=== PATIENT | female | born 1950 | race Caucasian/White ===

== ENCOUNTER 2016-05-20 18:05 | Emergency (ER) | payer OTHER ==
[~2016-05-20] VITALS: Ht 157.5 cm; Wt 59.9 kg
[2016-05-20 19:11] LABS: BASOPHIL % 0.6 % (0-2); PLATELET COUNT 297 x10^3mcL (130-400); RED CELL DISTRIBUTION WIDTH 14.5 % (11.5-14.5)
[2016-05-20 19:21] LABS: CALCIUM 9.2 mg/dL (8.5-10.1); CARBON DIOXIDE 28.7 mmol/L (21-32); CHLORIDE SERUM 103 mmol/L (98-107); CREATININE SERUM 0.6 mg/dL (0.6-1.0); GFR1 > 60 mL/min; GLUCOSE SERUM 99 mg/dL (74-106); SODIUM SERUM 142 mmol/L (136-145)
[2016-05-20 19:27] LABS: ALBUMIN 4.1 g/dL (3.4-5.0); ALKALINE PHOSPHATASE 108 U/L (46-116); ALT/SGPT 22 U/L (14-59); AST/SGOT 24 U/L (15-37); BILIRUBIN TOTAL 0.7 mg/dL (0.20-1.00); MAGNESIUM 2.2 mg/dL (1.8-2.4)
[2016-05-20 19:29] LABS: CHOLESTEROL 296 mg/dL (<200); HDL CHOLESTEROL 118 mg/dL (40-60); TOTAL PROTEIN, SERUM 8.3 g/dL (6.4-8.2)
[2016-05-20 19:53] LABS: microscopic required? YES; urine erythrocyte NEGATIVE (NEGATIVE)
[2016-05-20 20:05] LABS: AMPHETAMINE QUAL UR NONE DETECTED (NEG <=1000)
[2016-05-20 20:19] VITALS: BP 112/85
== END 2016-05-20 20:19 | disposition home or self-care (01) ==
LOC: ED 18:05
PROVIDERS: Emergency Medicine
DX: I10 Essential (primary) hypertension (principal); E78.00 Pure hypercholesterolemia, unspecified; R51 Headache; J45.909 Unspecified asthma, uncomplicated
CPT/HCPCS: 80307; 82962; 83880; Q0092

== ENCOUNTER 2016-06-12 05:49 | Inpatient (IN) | payer OTHER ==
[~2016-06-12] VITALS: Ht 157.5 cm; Wt 60.1 kg
[2016-06-12 06:49] LABS: BASOPHIL % 0.3 % (0-2); PLATELET COUNT 282 x10^3mcL (130-400); RED CELL DISTRIBUTION WIDTH 13.8 % (11.5-14.5)
[2016-06-12 06:52] LABS: CALCIUM 9.3 mg/dL (8.5-10.1); CARBON DIOXIDE 26.3 mmol/L (21-32); CHLORIDE SERUM 102 mmol/L (98-107); CREATININE SERUM 0.7 mg/dL (0.6-1.0); GFR1 > 60 mL/min; GLUCOSE SERUM 126 mg/dL (74-106); POTASSIUM SERUM 3.5 mmol/L (3.5-5.1); SODIUM SERUM 139 mmol/L (136-145)
[2016-06-12 06:57] LABS: ALBUMIN 4.1 g/dL (3.4-5.0); ALKALINE PHOSPHATASE 110 U/L (46-116); ALT/SGPT 22 U/L (14-59); AST/SGOT 23 U/L (15-37); BILIRUBIN TOTAL 0.58 mg/dL (0.20-1.00); TOTAL PROTEIN, SERUM 8.1 g/dL (6.4-8.2)
[2016-06-12] MEDS ORDERED: METOPROLOL SUCC25 M2 PO (07:16)
[2016-06-12] MEDS ORDERED: HYDROCHLOROTHIA50 MG PO (07:16)
[2016-06-12 08:23] VITALS: BP 167/106
[2016-06-12 09:25] LABS: PHOSPHOROUS 3.6 mg/dL (2.5-4.9)
[2016-06-12 09:27] LABS: CHOLESTEROL/HDL RATIO 3.2; MAGNESIUM 2.1 mg/dL (1.8-2.4)
[2016-06-12 09:38] LABS: T3 TOTAL 1.28 ng/mL
[2016-06-12 09:52] LABS: FREE T4 1.66 ng/dL (0.76-1.46); FREE THYROXINE INDEX 3.4 ug/dL (1.4-4.5); T4(THYROXINE) 11.1 ug/dL (4.7-13.3)
[2016-06-12 11:31] LABS: microscopic required? NO
[2016-06-12 11:42] LABS: UA SPECIFIC GRAVITY <=1.005 (1.005-1.035); urine erythrocyte NEGATIVE (NEGATIVE)
[2016-06-12 11:56] LABS: AMPHETAMINE QUAL UR NONE DETECTED (NEG <=1000)
[2016-06-12 14:00] VITALS: BP 167/106
[2016-06-12 14:30] VITALS: BP 147/83
[2016-06-12 16:35] VITALS: BP 124/78
[2016-06-12 21:44] VITALS: BP 123/74
[2016-06-13 05:24] VITALS: BP 129/75
[2016-06-13 06:32] LABS: CALCIUM 8.9 mg/dL (8.5-10.1); CARBON DIOXIDE 31.2 mmol/L (21-32); CHLORIDE SERUM 102 mmol/L (98-107); CREATININE SERUM 0.7 mg/dL (0.6-1.0); GFR1 > 60 mL/min; GLUCOSE SERUM 93 mg/dL (74-106); MAGNESIUM 1.9 mg/dL (1.8-2.4); PHOSPHOROUS 5.1 mg/dL (2.5-4.9); POTASSIUM SERUM 4.8 mmol/L (3.5-5.1); SODIUM SERUM 139 mmol/L (136-145)
[2016-06-13 06:45] LABS: BASOPHIL % 0.5 % (0-2); PLATELET COUNT 232 x10^3mcL (130-400); RED CELL DISTRIBUTION WIDTH 13.8 % (11.5-14.5)
[2016-06-13 09:41] VITALS: BP 115/49
[2016-06-13 09:42] VITALS: BP 97/57
[2016-06-13 13:32] VITALS: Ht 157.5 cm; Wt 60.1 kg
[2016-06-13 13:39] VITALS: BP 123/78
[2016-06-13 17:47] VITALS: BP 106/65
[2016-06-13 22:00] VITALS: BP 113/63
[2016-06-14 06:15] VITALS: BP 124/64
[2016-06-14 07:11] LABS: BASOPHIL % 1.1 % (0-2); CALCIUM 8.8 mg/dL (8.5-10.1); CARBON DIOXIDE 31.2 mmol/L (21-32); CHLORIDE SERUM 103 mmol/L (98-107); CREATININE SERUM 0.6 mg/dL (0.6-1.0); GFR1 > 60 mL/min; GLUCOSE SERUM 88 mg/dL (74-106); PLATELET COUNT 220 x10^3mcL (130-400); POTASSIUM SERUM 4.4 mmol/L (3.5-5.1); RED CELL DISTRIBUTION WIDTH 14.1 % (11.5-14.5); SODIUM SERUM 139 mmol/L (136-145)
[2016-06-14 10:39] VITALS: BP 152/86
[2016-06-14 17:02] VITALS: BP 119/80
== END 2016-06-14 19:08 | disposition home or self-care (01) | DRG 206 ==
LOC: ED 05:49 → DU 07:18 → MU 06-14 13:09
PROVIDERS: Emergency Medicine; Family Medicine; Internal Medicine Gastroenterology; ADMIT Family Medicine
PROC: 7W08X4Z Osteopathic Treatment of Rib Cage using Indirect Forces (ICD-10-PCS; 2016-06-14)
PROC: 7W02X4Z Osteopathic Treatment of Thoracic Region using Indirect Forces (ICD-10-PCS; 2016-06-14)
PROC: 7W08X0Z Osteopathic Treatment of Rib Cage using Articulatory-Raising Forces (ICD-10-PCS; 2016-06-14)
PROC: 7W01X7Z Osteopathic Treatment of Cervical Region using Muscle Energy-Isometric Forces (ICD-10-PCS; 2016-06-14)
PROC: 0DB68ZX Excision of Stomach, Via Natural or Artificial Opening Endoscopic, Diagnostic (ICD-10-PCS; principal; 2016-06-14 10:00)
PROC: 7W01X1Z Osteopathic Treatment of Cervical Region using Fascial Release (ICD-10-PCS; 2016-06-14 10:00)
DX: M94.0 Chondrocostal junction syndrome [Tietze] (principal); E87.6 Hypokalemia; E78.5 Hyperlipidemia, unspecified; I10 Essential (primary) hypertension; K21.0 Gastro-esophageal reflux disease with esophagitis; K44.9 Diaphragmatic hernia without obstruction or gangrene; M99.01 Segmental and somatic dysfunction of cervical region; M99.08 Segmental and somatic dysfunction of rib cage; M99.02 Segmental and somatic dysfunction of thoracic region; Z68.24 Body mass index [BMI] 24.0-24.9, adult
CPT/HCPCS: 43235; 80307; 83880; 84439; 85378; 92610-GN; 94150; J1200; J1610; J2250; J2310; J2405; J3010; J3490; J7030; J7620; J7626; Q0092

== ENCOUNTER 2018-05-22 12:35 | Emergency (ER) | payer OTHER ==
[~2018-05-22] VITALS: Ht 157.5 cm; Wt 63.0 kg
[~2018-05-22 12:35] MED LIST: HYDROCHLOROTHIA50 MG PO; METOPROLOL SUCC25 M2 PO
[2018-05-22 13:08] VITALS: Ht 157.5 cm; Wt 63.0 kg
[2018-05-22 14:38] VITALS: BP 164/113
== END 2018-05-22 14:38 | disposition home or self-care (01) ==
LOC: ED 12:35
DX: J06.9 Acute upper respiratory infection, unspecified (principal); I10 Essential (primary) hypertension; E78.00 Pure hypercholesterolemia, unspecified; Z88.8 Allergy status to other drugs, medicaments and biological substances

== ENCOUNTER 2019-10-14 11:00 | Observation (INO) | payer OTHER, SELFPAY ==
[~2019-10-14] VITALS: Ht 157.5 cm; Wt 61.2 kg
[2019-10-14 12:39] LABS: BASOPHIL % 0.5 % (0-2); PLATELET COUNT 231 x10^3mcL (130-400); RED CELL DISTRIBUTION WIDTH 13.5 % (11.5-14.5)
[2019-10-14 12:48] LABS: microscopic required? NO
[2019-10-14 12:56] LABS: CALCIUM 8.7 mg/dL (8.5-10.1); CARBON DIOXIDE 30.8 mmol/L (21-32); CHLORIDE SERUM 101 mmol/L (98-107); CREATININE SERUM 0.6 mg/dL (0.6-1.0); GFR1 > 60 mL/min; GLUCOSE SERUM 104 mg/dL (74-106); POTASSIUM SERUM 3.6 mmol/L (3.5-5.1); SODIUM SERUM 137 mmol/L (136-145)
[2019-10-14 13:00] LABS: ALKALINE PHOSPHATASE 88 U/L (46-116); ALT/SGPT 21 U/L (14-59); AST/SGOT 23 U/L (15-37); BILIRUBIN TOTAL 0.6 mg/dL (0.20-1.00); LACTIC DEHYDROGENASE (LDH) 188 U/L (100-190); TOTAL PROTEIN, SERUM 8.2 g/dL (6.4-8.2)
[2019-10-14 13:18] LABS: C REACTIVE PROTEIN 1.1 mg/dL (<=0.9)
[2019-10-14 13:23] LABS: urine erythrocyte NEGATIVE (NEGATIVE)
[2019-10-14 16:29] VITALS: BP 153/95
[2019-10-14 16:36] VITALS: Ht 157.5 cm; Wt 61.2 kg
[2019-10-14 20:48] VITALS: BP 105/66
[2019-10-15 05:42] VITALS: BP 122/71
[2019-10-15 09:05] VITALS: BP 119/64
[2019-10-15 12:26] VITALS: BP 148/86
[2019-10-15 13:04] VITALS: BP 148/86
== END 2019-10-15 15:45 | disposition home or self-care (01) ==
LOC: ED 11:00 → DU 13:49
PROVIDERS: Emergency Medicine; ADMIT Internal Medicine; ATTEND Internal Medicine
DX: R07.89 Other chest pain (principal); R06.02 Shortness of breath; Z20.828 Contact with and (suspected) exposure to other viral communicable diseases; I10 Essential (primary) hypertension; F41.9 Anxiety disorder, unspecified
CPT/HCPCS: 36600; 83880; G0378; J0360; Q0092; U0003-CS